=== PATIENT | female | born 1975 | race Caucasian/White ===

== ENCOUNTER 2022-05-08 20:10 | Emergency (ER) | payer OTHER, SELFPAY ==
--- NOTE | ~2022-05-08 | CT_ITS ---
EXAMINATION: CT head/brain wo IV con CLINICAL INFORMATION: Reason for Exam s/p fall COMPARISON: None. TECHNIQUE: Contiguous axial imaging was performed from the skull base to vertex without intravenous contrast. Sagittal and coronal reformatted images were obtained. This CT examination was performed using dose optimization techniques as appropriate, variously including the following: * Automated exposure control * Adjustment of mA and/or kV according to patient size (this includes techniques or standardized protocols for targeted exams where dose is matched to indication/reason for exam; i.e. extremities or head) Use of iterative reconstruction technique DLP: 752 mGy-cm FINDINGS: Significant left prefrontal and preseptal soft tissue swelling. No underlying calvarial fracture. The mastoid air cells and visualized portions of the paranasal sinuses are well aerated. There is no evidence of acute intracranial hemorrhage or territorial infarction. No abnormal mass effect or midline shift is seen. Piper to white matter differentiation is well preserved. No extra-axial fluid collections are identified. No hydrocephalus. CT/CT head/brain wo IV con IMPRESSION: Significant left prefrontal and preseptal soft tissue swelling. No underlying calvarial fracture or acute intracranial abnormality.
[2022-05-08 20:56] VITALS: BP 132/71; PULSE 76; RESP 16; TEMP 36.9; O2SAT 98; BMI 30.4
[2022-05-08 21:07] VITALS: BP 170/89; PULSE 77; RESP 18; TEMP 37.3; O2SAT 99
--- NOTE | 2022-05-08 21:22 | ED.HEATRA ---
HPI - Head Injury General Chief complaint: Head Injury Stated complaint: heady injury fall at home Time Seen by Provider: 05/08/22 21:20 Source: patient Mode of arrival: ambulatory Limitations: no limitations History of Present Illness HPI Narrative: Patient comes in with head injury apparently patient was coming out of the car yesterday her foot got stuck in the seat and fell landed on her left forehead no loss of consciousness no nausea no vomiting complaining of headache since then has ecchymosis about the left eye no vision problem patient not on any anticoagulants Related Data Previous Rx's Medication Instructions Recorded cephalexin 500 mg capsule 500 mg PO QID 10 days #40 caps 05/08/22 mupirocin calcium 2 % topical cream 1 appl topical BID #15 grams 05/08/22 Allergies Allergy/AdvReac Type Severity Reaction Status Date / Time No Known Allergies Allergy Verified 05/08/22 21:25 Review of Systems Review of Systems: Yes all other systems are reviewed and are negative [facility] Social History Social History Alcohol intake: current Alcohol intake frequency: a few times a week Alcohol type: other Smoked in Last 30 Days: No Substance Use Type: Other Substance Use Type Other:: Gummies(CBD) Substance Use Frequency: Weekly Substance Use Frequency Other:: once a week at bedtime Last Used Substance: Weeks (ago) Any prior treatment program specific to substance use: No Advance Directives: No Advance Directives Information Provided: No Patient : No Physical Exam Vital Signs: Vital Signs: Last Vital Signs Temp 99.1 F 05/08/22 21:07 Pulse 77 05/08/22 21:07 Resp 18 05/08/22 21:07 BP 170/89 H 05/08/22 21:07 Pulse Ox 99 05/08/22 21:07 O2 Del Method 05/08/22 21:07 BMI result Body Mass Index 30.4 Appearance: Alert. Oriented X3. No acute distress. Eyes: PERRLA, No Nystagmus ecchymosis of left forehead and periorbital area EOMI visual field intact ENT: Pharynx normal. Oral Mucosa moist Neck: Normal inspection. Neck supple. No midline tenderness CVS: Normal heart rate and rhythm. Pulses normal. Respiratory: No respiratory distress. Equal air entry bilateral, no wheezing/rales/rhonchi Abdomen: Soft and nontender. Bowel sounds are present, no mass palpable, no CVA tenderness Skin: Skin warm and dry. Normal skin color. Normal skin turgor. Extremities: No lower extremity edema. No calf tenderness Neuro: Oriented X 3. No motor deficit. No sensory deficit.No cerebellar signs , cranial nerves II-XII intact Medications Administered Discontinued Medications Generic Name Dose Route Start Last Admin Trade Name Freq PRN Reason Stop Dose Admin Cephalexin HCl 500 mg 05/08/22 22:25 05/08/22 22:58 Cephalexin 500 Mg Capsule PO 05/08/22 22:26 500 mg ONCE ONE Administration MDM - Head Injury MDM Narrative Medical decision making narrative: Patient stated was mechanical fall head CT is negative had superficial abrasion above left eyebrow which seems to be getting infected will discharge patient home on cephalexin and Bactroban ointment Discharge Plan Discharge Clinical Impression: Closed head injury, Abrasion Patient Disposition: Home, Self-Care Additional Instructions: local Care as advised Take antibiotic to avoid infection and apply ointment as prescribed Tylenol / Motrin for pain Prescriptions: New cephalexin 500 mg capsule 500 mg PO QID 10 Days Qty: 40 0RF mupirocin calcium 2 % cream 1 appl topical BID Qty: 15 0RF Stand Alone Forms: Work/School Release Interventions: ED Discharge Assessment Last Done: 05/08/22 23:07 Discharge Date/Time: 05/08/22 23:09
[2022-05-08] MEDS: cephALEXin 500 MG CAPSULE PO (22:58)
== END 2022-05-08 23:09 | disposition home or self-care (01) ==
PROVIDERS: Emergency Provider Internal Medicine; PCP Internal Medicine
DX: S00.91XA Abrasion of unspecified part of head, initial encounter (principal); R51.9 Headache, unspecified; W19.XXXA Unspecified fall, initial encounter; Y93.9 Activity, unspecified; Y92.9 Unspecified place or not applicable; Y99.9 Unspecified external cause status
CPT/HCPCS: 70450; 99284